=== PATIENT | female | born 1995 | race Two or more races ===

== ENCOUNTER → 2017-10-08 | Outpatient (CLI) | payer OTHER ==
--- NOTE | 2017-10-08 13:32 | RAD ---
Left breast ultrasound, 10/08/2017: History: Left breast lump A targeted ultrasound exam was performed of the area of reported clinical concern at the 2:00 location. Heterogeneous fibroglandular shadows are present. No solid or cystic breast mass is seen. IMPRESSION: The targeted ultrasound exam of the upper outer left breast reveal no abnormality. Clinical surveillance is suggested.
== END | disposition home or self-care (01) ==
LOC: US 12:45
PROVIDERS: ATTEND Nurse Practitioner Family
DX: N63.21 Unspecified lump in the left breast, upper outer quadrant (principal)
CPT/HCPCS: 76641